=== PATIENT | male | born 1950 | race Hispanic/Latino ===

== ENCOUNTER 2021-01-13 07:48 | Emergency (ER) | payer SELFPAY ==
[2021-01-13] MEDS ORDERED: Meclizine HCl 25 MG TAB ONE (08:48)
[2021-01-13] MEDS ORDERED: Dexamethasone 10 MG/ML VIAL ONE (08:48)
[2021-01-13 09:23] LABS: #Eosinphils 0.1 10x3/uL (0.0-0.5); #Neutrophils 9.8 10x3/uL (1.5-8.4); %Basophils 0.2 % (0.0-2.0); %Eosinophils 0.7 % (0.0-6.0); %Lymphocytes 9.3 % (18.0-47.0); %Monocytes 8.3 % (0.0-10.0); Hemoglobin 14.3 g/dL (13.5-17.5); Mean Corpuscular HGB CONC 34.4 g/dL (32.0-36.0); Mean Corpuscular Hemoglobin 30.9 pg (27.0-33.0); Mean Corpuscular Volume 89.8 fl (81.2-95.1); Mean Platelet Volume 10.4 fl (7.4-10.4); Platelet Count 174 10x3/uL (150-450); RBC Distribution Width 12.2 % (11.5-14.5); Red Blood Cell (RBC) Count 4.63 10x6/uL (4.32-5.72); White Blood Cell (WBC) Count 12.1 10x3/uL (3.5-10.5)
[2021-01-13 09:42] LABS: ALT (SGPT) 28 U/L (8-55); AST (SGOT) 28 U/L (5-34); Albumin 3.8 g/dL (3.4-4.8); Alkaline Phosphatase 61 U/L (40-110); Anion Gap 16 mmol/L (10-20); BUN (Urea Nitrogen) 13 mg/dL (8.4-25.7); Bilirubin, Total 1.4 mg/dL (0.2-1.2); CK (CPK) 138 U/L (30-200); Calc. Creatinine Clearance 0 mL/min (70-130); Calcium 8.9 mg/dL (7.8-10.44); Carbon Dioxide 21 mmol/L (23-31); Chloride 101 mmol/L (98-107); Globulin 3.3 g/dL (2.4-3.5); Glucose 129 mg/dL (83-110); Potassium 3.9 mmol/L (3.5-5.1); Protein, Total 7.1 g/dL (5.8-8.1); Sodium 134 mmol/L (136-145)
== END 2021-01-13 10:02 | disposition home or self-care (01) ==
LOC: CSHERS 07:48
DX: R42 Dizziness and giddiness (principal)
CPT/HCPCS: 70450; 71045; 80053; 82550; 84484; 85025; 93005; 96374; J1100